=== PATIENT | female | born 2005 | race Caucasian/White ===

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

== ENCOUNTER 2023-08-08 04:22 | Emergency (ER) | payer BC ==
[~2023-08-08] VITALS: Ht 175.3 cm; Wt 84.1 kg
[2023-08-08 04:35] VITALS: TEMP 98.4
[2023-08-08] MEDS ORDERED: Morphine 4 MG/ML VIAL IV ONE ×2 (05:15→07:00)
[2023-08-08 05:22] LABS: BASO # 0.1 K/mm3 (0.0-0.2); BASO % 0.7 % (0.0-2.0); EOS # 0.2 K/mm3 (0.0-0.7); EOS % 1.9 % (0.0-4.0); GRAN # 6.2 K/mm3 (1.4-6.5); GRAN % 69.4 % (42.2-75.2); LYMPH # 1.7 K/mm3 (1.2-3.4); LYMPH % 18.7 % (20.0-51.0); MEAN CELL VOLUME 67 fl (80.0-95.0); MEAN CORPUSCULAR HGB CONC 28 g/dl (33.0-37.0); MEAN PLATELET VOLUME 8.6 fl (7.4-10.4); MONO # 0.8 K/mm3 (0.1-0.6); MONO % 9.1 % (1.7-9.3); PLATELET COUNT 372 K/mm3 (130-400); RED BLOOD COUNT 3.96 M/mm3 (4.10-5.30); REDCELL DISTRIBUTION WIDTH-CV 18.7 % (11.5-14.5)
[2023-08-08 05:27] LABS: HEMATOCRIT 26.4 % (35.0-45.0); HEMOGLOBIN 7.4 g/dl (12.0-15.0); MEAN CORPUSCULAR HEMOGLOBIN 19 pg (26-32)
[2023-08-08 05:43] LABS: ALBUMIN 3.8 g/dL (3.5-5.0); BILIRUBIN,TOTAL 0.4 mg/dL (0.2-1.2); C-REACTIVE PROTEIN 0.08 mg/dL (0.00-0.50); CALCIUM 9.7 mg/dL (8.4-10.2); CREATININE, serum 0.8 mg/dL (0.57-1.11); POTASSIUM 3.6 mEq/L (3.5-4.5); TOTAL PROTEIN 7.2 g/dl (6.2-8.1)
[2023-08-08] MEDS ORDERED: Iohexol 300 - 100 ML VIAL IV ONE (05:50)
[2023-08-08] MEDS ORDERED: NS 50 ML IV ONE (05:51)
[2023-08-08 06:08] LABS: COLLECTION METHOD CLEAN CATCH
[2023-08-08 06:17] LABS: PH 5.5 (5.0-8.5); URINE APPEARANCE CLEAR (CLEAR/HAZY); URINE BLOOD NEGATIVE (NEGATIVE); URINE COLOR YELLOW (YELLOW); URINE GLUCOSE NEGATIVE (NEGATIVE); URINE KETONE NEGATIVE (NEGATIVE); URINE NITRATE NEGATIVE (NEGATIVE); URINE PROTEIN(semi-quant) NEGATIVE (NEGATIVE); URINE UROBILINOGEN 0.2 E.U/dL (0.2-1.0)
[2023-08-08 07:36] LABS: STOOL FOR OCCULT BLOOD NEGATIVE (NEGATIVE)
[2023-08-08 09:03] VITALS: BP 135/73; PULSE 95
[2023-08-08] MEDS ORDERED: Ketorolac 30 MG/ML VIAL IV ONE (09:45)
[2023-08-08] MEDS ORDERED: FLAGYL500 MG PO (09:53)
[2023-08-08] MEDS ORDERED: Ondansetron 4 MG/2 ML VIAL IV PRN ×2 (12:00→12:45)
[2023-08-08] MEDS ORDERED: Acetaminophen 325 MG TAB PO PRN (12:00)
[2023-08-08] MEDS ORDERED: Polyethylene Glycol 3350 119 GM BOTTLE PO SCH (18:00)
[2023-08-09] MEDS ORDERED: Polyethylene Glycol 3350 119 GM BOTTLE PO SCH (08:00)
== END 2023-08-08 14:00 | disposition home or self-care (01) ==
LOC: COL.ER 04:22
PROVIDERS: Emergency Medicine
DX: R10.32 Left lower quadrant pain (principal); D64.9 Anemia, unspecified; R19.7 Diarrhea, unspecified
CPT/HCPCS: J2270; Q9967

== ENCOUNTER 2024-01-30 09:51 | Outpatient (CLI) | payer BC ==
[~2024-01-30] VITALS: Ht 175.4 cm; Wt 75.5 kg
[~2024-01-30 09:51] MED LIST: FLAGYL500 MG PO
[2024-01-30 10:27] VITALS: BP 120/76; PULSE 82; TEMP 98
[2024-01-30] MEDS ORDERED: REXULTI2 MG PO (10:32)
[2024-01-30] MEDS ORDERED: ADDERALL XR 10M10 MG PO (10:33)
[2024-01-30] MEDS ORDERED: XANAX 0.5MG0.5 MG PO (10:33)
[2024-01-30] MEDS ORDERED: MAGCITRATE PO (10:35)
[2024-01-30 12:25] VITALS: BP 125/84; PULSE 90
[2024-01-30 12:30] VITALS: BP 123/62; PULSE 78
--- NOTE | 2024-01-30 12:32 | NUR ---
SEE MERGE RECORD FOR VITAL SIGNS AND SYMPTOMS DURING PROCEDURE, PT REPORTS SYMPTOMS HAVE IMPROVED. PATIENT TRANSPORTED VIA WHEELCHAIR TO [facility], FAMILY AT BEDSIDE. PLAN OF CARE REVIEWED WITH DR. CANCHOLA, QUESTIONS INVITED. TRANSFER OF CARE REPORT TO DHARA JORGE. VITAL SIGNS STABLE ON ARRIVAL. CALL LIGHT PLACED WITHIN REACH, BED TO LOWEST POSITION.
--- NOTE | 2024-01-30 12:56 | NUR ---
DC instructions reviewed with pt and mother, both express understanding. Pt drank tea while awaiting DC paperwork, has denied desire for snack since return from [facility], stating she has little appetite when she has dizzy spells. She and mother plan to go get food after discharge. Pt has been free of complaints while waiting for DC papers. IV DC'd, site wrapped with coban. She is assisted out to mother's car by wheelchair with belongings.
== END 2024-01-30 12:56 | disposition home or self-care (01) ==
LOC: COL.CAR 09:51
DX: Z01.810 Encounter for preprocedural cardiovascular examination (principal)